=== PATIENT | male | born 1995 | race Caucasian/White ===

== ENCOUNTER 2016-06-22 15:12 | Emergency (ER) | payer BC, OTHER ==
[2016-06-22 16:07] VITALS: BP 145/75
[2016-06-22] MEDS ORDERED: Ibuprofen TAB* 600 MG PO ONE (16:15)
--- NOTE | 2016-06-22 16:33 | ED ---
Lower Extremity - HPI Summary HPI Summary: 21 yr old male with complaint of right foot pain. HPI: the patient developed pain on top of the right foot overnight. He states he played intramural soccer at [employer] yesterday. He kicked something hard, object or player, unsure. He finished the game. He did not have pain during the remainder of the game. He got up this morning and had pain putting weight on his right foot. he has pain with bearing weight and states he is limping today. No other complaint.s - History of Current Complaint Chief Complaint: UCGeneralIllness Stated Complaint: FOOT INJURY Time Seen by Provider: 06/22/16 16:12 - Allergies/Home Medications Allergies/Adverse Reactions: Allergies Allergy/AdvReac Type Severity Reaction Status Date / Time No Known Allergies Allergy Verified 06/22/16 16:07 PMH/Surg Hx/FS Hx/Imm Hx Previously Healthy: Yes Infectious Disease History: No Infectious Disease History: Denies: Traveled Outside the [place] in Last 30 Days - Family History Known Family History: Positive: None - Social History Alcohol Use: Occasionally Substance Use Type: Reports: None Smoking Status (MU): Never Smoked Tobacco Review of Systems Positive: Other - foot pain All Other Systems Reviewed And Are Negative: Yes Physical Exam Triage Information Reviewed: Yes Vital Signs On Initial Exam: Initial Vitals Temp Pulse Resp BP Pulse Ox 98.4 F 70 15 145/75 100 06/22/16 16:03 06/22/16 16:03 06/22/16 16:03 06/22/16 16:03 06/22/16 16:03 Vital Signs Reviewed: Yes Appearance: Positive: Well-Appearing, No Pain Distress, Well-Nourished Skin: Positive: Warm Head/Face: Positive: Normal Head/Face Inspection ENT: Positive: Normal ENT inspection Respiratory/Lung Sounds: Positive: Other - normal effort Cardiovascular: Positive: Normal Musculoskeletal: Positive: Other - right foot with mild redness to the dorsum of the upper foot. Some tenderness. No soft tissue swelling. No tenderness over metatarsals. No ankle tenderness or swelling. Neurological: Positive: Normal, Sensory/Motor Intact, Alert, Oriented to Person Place, Time, CN Intact II-III Psychiatric: Positive: Normal Diagnostics - Vital Signs Vital Signs Temp Pulse Resp BP Pulse Ox 06/22/16 16:03 98.4 F 70 15 145/75 100 - Laboratory Lab Statement: Any lab studies that have been ordered have been reviewed, and results considered in the medical decision making process. - Radiology foot xray Xray Interpretation: No Acute Changes Radiology Interpretation Completed By: Radiologist Lower Extremity Course/Dx - Course Course Of Treatment: Patient with contusion to foot. Post op shoe, and referral to ortho. He does not want crutches - Diagnoses Provider Diagnoses: Contusion of foot, right Discharge - Discharge Plan Condition: Good Disposition: HOME Prescriptions: Ibuprofen TAB* [Motrin TAB* 600 MG] 600 mg PO Q8H PRN #20 tab PRN Reason: Pain Patient Education Materials: Foot Contusion (ED) Referrals: Non Staff,Doctor [Primary Care Provider] - Barbara Lopez MD [Medical Doctor] -
--- NOTE | 2016-06-22 16:40 | RAD ---
Indication: Injury to RIGHT foot yesterday playing soccer. Kicking injury. Pain on top of foot. Comparison: None. Technique: AP, lateral, and oblique views RIGHT foot. Report: Normal articular alignment. Negative for fracture or stigmata of stress reaction. Unremarkable soft tissue contours. Small os peroneum accessory ossicle noted. IMPRESSION: No traumatic injury evident. Negative exam.
== END 2016-06-22 17:17 | disposition home or self-care (01) ==
LOC: UCCORT 15:12
DX: S90.31XA Contusion of right foot, initial encounter (principal); W21.9XXA Striking against or struck by unspecified sports equipment, initial encounter; Y93.66 Activity, soccer; Y92.322 Soccer field as the place of occurrence of the external cause
CPT/HCPCS: 99202; A9270-GY; G0463